=== PATIENT | female | born 1945 | race Caucasian/White ===

== ENCOUNTER → 2019-10-30 09:34 | Outpatient (CLI) | payer MEDICARE, SELFPAY ==
--- NOTE | ~2019-10-30 | CT_ITS ---
EXAMINATION: CT IAC/mastoids BI wo con DATE: 10/30/2019 09:54 INDICATION: Sudden hearing loss. Vertigo. TECHNIQUE: Computed tomography (CT) of the temporal bones was performed without intravenous contrast. Automated exposure control and iterative reconstruction technique were employed. The dose-length pro duct was 217.73 mGy-cm. COMPARISON: Head CT 06/13/2012 FINDINGS: There is anteroposterior elongation of the ocular globes. There are likely changes of ocula r lens replacement surgeries. RIGHT TEMPORAL BONE: The internal auditory canal, cochlea, vestibule, semicircular canals, vestibular aqueduct, carotid ca nal, jugular bulb, facial nerve course, Prussak space, scutum, ossicles, tympanic membrane, and exter nal auditory canal are normal. There is a trace right mastoid effusion. LEFT TEMPORAL BONE: The internal auditory canal, cochlea, vestibule, semicircular canals, vestibular aqueduct, carotid ca nal, jugular bulb, facial nerve course, ossicles, Prussak space, scutum, tympanic membrane, external auditory canal, and mastoid air cells are normal. IMPRESSION: 1. No etiology for the patient's symptoms. Reviewed, dictated and finalized at location A.
== END ==
PROVIDERS: PCP Internal Medicine Cardiovascular Disease; Visit Provider Otolaryngology
DX: H91.90 Unspecified hearing loss, unspecified ear (principal)
CPT/HCPCS: 70480

== ENCOUNTER 2020-08-13 17:27 | Emergency (ER) | payer MEDICARE, SELFPAY ==
[2020-08-13] VITALS (11 sets, daily range): BP systolic 132–151; BP diastolic 56–67; PULSE 80–88; RESP 12–20; TEMP 36.8; O2SAT 96–99
--- NOTE | 2020-08-13 17:45 | ECG_ITS ---
Measurements Intervals [place] Rate: 80 P: 93 [place]: 163 QRS: 37 QRSD: 89 T: 37 QT: 406 QTc: 469 Interpretive Statements ELECTRONIC ATRIAL PACEMAKER DELAYED PRECORDIAL R/S TRANSITION BASELINE ARTIFACT- I, II, III, AVR, AVL, AVF, V1, V3-V6 BORDERLINE ECG Electronically Signed On 08-13-2020 19:38:39 CDT by David Vivas D.O.
--- NOTE | 2020-08-13 17:50 | ED.DIZZY ---
HPI - Dizziness General Chief Complaint: Dizziness Stated Complaint: dizzy, palpations Time Seen by Provider: 08/13/20 17:48 History of Present Illness HPI Narrative: 74 yo female w/ h/o pacemaker presents to the ED for dizziness. SHe reports that she was just sitting at home when she suddenly felt lightheaded and began to feel her heart race and skip beats. She has had several episodes like this and no specific cause has been found. 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 She has no symptoms at this time. Related Data Allergies Allergy/AdvReac Type Severity Reaction Status Date / Time Penicillins Allergy Unknown Verified 04/22/15 16:30 Review of Systems Review of Systems: All systems reviewed & are unremarkable except as noted in HPI and below Constitutional: Constitutional: Denies fatigue, Denies fever(s) and Denies weakness Eyes: Eyes: Reports no additional eye complaints ENT: Reports as per HPI Cardiovascular: Cardiovascular: Denies chest pain and Reports rapid heart rate Respiratory: Respiratory: Denies dyspnea Gastrointestinal: Gastrointestinal: Denies abdominal pain and Denies nausea Genitourinary: Genitourinary: Reports no additional female genitourinary complaints Musculoskeletal: Musculoskeletal: Denies back pain Neurologic: Denies confusion, Denies syncope, Denies headache(s) and Denies weakness [facility] Past Medical History Medical History Pacemaker Social History Social History Gender identity (if verbalized by the patient): Female Exam Const: General: no acute distress and alert Orientation/consciousness: patient oriented x3 HENMT: Head: normal to inspection Ears: TM's normal bilaterally and EAC's normal Eyes: Pupils: Equal, round and reactive pupils present EOM: EOMs intact bilaterally Neck: Neck: normal visual inspection Resp: Effort & Inspection: normal respiratory effort Auscultation: clear to auscultation bilaterally, no rales, no rhonchi and no wheezes Cardio: Jugular venous distension: no JVD Rate: regular rate Rhythm: regular rhythm Skin: General skin exam: normal color Neuro: General: patient oriented x3, moves all extremities, no focal motor deficits and CN's II-XI intact bilaterally Cranial nerves: Yes Nystagmus not present Speech: normal speech Gait exam (Neuro): Normal gait present Extrem: General: no edema Psych: Appearance: well kempt Affect: normal affect Course Vital Signs Vital signs: Vital Signs Temperature 36.8 C 08/13/20 17:33 Pulse Rate 80 08/13/20 17:33 Respiratory Rate 20 08/13/20 17:33 Blood Pressure 151/59 H 08/13/20 17:33 Pulse Oximetry 99 08/13/20 17:33 Temperature 36.8 C 08/13/20 17:33 Pulse Rate 80 08/13/20 19:51 Respiratory Rate 19 08/13/20 19:51 Blood Pressure 132/67 08/13/20 19:51 Pulse Oximetry 97 08/13/20 19:51 MDM - Dizziness MDM Narrative Medical decision making narrative: No events on pacemaker interrogation report to explain her dizziness. UA concerning for infection. Could just represent contaminated specimen. Lab Data Result diagrams: 08/13/20 17:47 08/13/20 17:47 Labs: Lab Results 08/13/20 08/13/20 08/13/20 Range/Units 17:47 17:47 18:38 WBC 9.8 (4.5-10.0) K/mm3 RBC 4.48 (4.2-5.4) M/mm3 Hgb 13.1 (12.0-15.0) g/dL Hct 40.7 (37.0-47.0) % MCV 90.8 (80-100) fl MCH 29.2 (26-34) pg MCHC 32.2 (32-36) g/dl RDW 13.4 (11.5-14.5) % Plt Count 387 H (150-375) k/mm3 MPV 9.4 (7.4-10.4) fl Immature Gran % (Auto) 0.5 (0-0.5) % Neut % (Auto) 62.4 (45.5-73.1) % Lymph % (Auto) 26.5 (18.3-44.2) % [place] % (Auto) 7.8 (2.6-8.5) % Eos % (Auto) 1.7 (0-4.4) % Baso % (Auto) 1.1 (0.2-1.2) % Lymph # (Auto) 2.60 (0.9-3.2) K/mm3 [place] # (Auto) 0.8 H
[2020-08-13 17:53] LABS: Basophils Absolute Auto 0.1 K/mm3 (0.0-0.1); Basophils Percent Auto 1.1 % (0.2-1.2); Eosinophils Absolute Auto 0.2 K/mm3 (0-0.3); Eosinophils Percent Auto 1.7 % (0-4.4); Hematocrit 40.7 % (37.0-47.0); Hemoglobin 13.1 g/dL (12.0-15.0); Immature Granulocyte Absolute 0.05 K/mm3 (0.00-0.031); Immature Granulocyte Percent A 0.5 % (0-0.5); Lymphocytes Percent Auto 26.5 % (18.3-44.2); Mean Corpuscular HGB Conc 32.2 g/dl (32-36); Mean Corpuscular Hemoglobin 29.2 pg (26-34); Mean Corpuscular Volume 90.8 fl (80-100); Mean Platelet Volume 9.4 fl (7.4-10.4); Monocytes Absolute Auto 0.8 K/mm3 (0.1-0.6); Monocytes Percent Auto 7.8 % (2.6-8.5); Neutrophils Absolute Auto 6.1 K/mm3 (1.3-6.7); Neutrophils Percent Auto 62.4 % (45.5-73.1); Platelet Count Result 387 k/mm3 (150-375); Red Blood Count 4.48 M/mm3 (4.2-5.4); Red Cell Distribution Width 13.4 % (11.5-14.5); White Blood Count 9.8 K/mm3 (4.5-10.0)
[2020-08-13 18:03] LABS: Anion Gap 9 mmol/L (8-16); Blood Urea Nitrogen 15 mg/dL (7-17); Calcium 9.7 mg/dL (8.4-10.2); Carbon Dioxide 25 mmol/L (22-30); Chloride 106 mmol/L (98-107); Estimated CRCL calculation 57 ml/min; Estimated Glomerular Filt Rate > 60; Glucose 114 mg/dL (65-105); Potassium 3.9 mmol/L (3.4-5.0); Sodium 140 mmol/L (137-145)
[2020-08-13 18:55] LABS: Add Urine Microscopic? YES; Appearance Urine Cloudy (Clear); Bacteria Urine 1+ /hpf; Bilirubin Urine Negative (Negative); Color Urine Yellow (Yellow); Glucose Urine UA Negative (Negative); Ketones Urine Negative (Negative); Leukocyte Esterase Ur 3+ LEU/UL (Negative); Mucus Urine Moderate /lpf; Nitrate Urine Negative (Negative); Protein Urine 1+ mg/dL (Negative); Squamous Epithelial Cell Urine Many /hpf (Few); Urobilinogen Urine Negative mg/dL (<2.0); WBC Urine 51-75 /hpf
[2020-08-13 18:56] LABS: Blood Urine Negative (Negative)
--- NOTE | 2020-08-13 19:05 | PC.NURSE ---
Spoke with [employer], they will be faxing over a report.
[2020-08-13] MEDS: NITROFURANTOIN MONOHYD MACROCR 100 MG CAP PO (19:10)
--- NOTE | 2020-08-13 19:12 | PC.NURSE ---
Report received from MICHAELA Borjas. Assumed care of patient at this time.
== END 2020-08-13 19:53 | disposition home or self-care (01) ==
PROVIDERS: Emergency Provider Emergency Medicine; PCP Internal Medicine Cardiovascular Disease
DX: N39.0 Urinary tract infection, site not specified (principal); R42 Dizziness and giddiness; Z95.0 Presence of cardiac pacemaker; R94.31 Abnormal electrocardiogram [ECG] [EKG]
CPT/HCPCS: 36415; 80048; 81001; 85025; 87086; 93005; 99284; A9270

== ENCOUNTER 2021-03-28 11:05 | Emergency (ER) | payer MEDICARE, SELFPAY ==
--- NOTE | 2021-03-28 11:08 | ED.URI ---
HPI - URI/Sore Throat General Chief Complaint: Upper Respiratory Infection Stated Complaint: sore throat/swollen glands Time Seen by Provider: 03/28/21 11:08 Source: patient and RN notes reviewed History of Present Illness HPI Narrative: Patient is a 75-year-old female who presents the urgent care with complaints of left-sided swollen glands and sore throat for the last 4 days. Patient denies of any recent exposure to strep, Covid or influenza. States that she has had a Covid vaccine. Denies of any fevers, headaches, nausea or vomiting. Patient states she has been taking ixzp-vik-itrhbsy Coricidin HBP for her symptoms. No other acute complaints. No acute distress noted. Patient read the plan of care. Some parts of this dictation were generated by voice recognition software and may contain typographical and/or grammatical inaccuracies. Related Data Allergies Allergy/AdvReac Type Severity Reaction Status Date / Time Penicillins Allergy Unknown Rash Verified 03/28/21 11:33 Review of Systems Review of Systems: CONSTITUTIONAL: Denies fever, chills, or sweats. EYES: Denies visual changes, redness, or discharge. ENT: Reports of sore throat and swollen glands on the left CARDIOVASCULAR: Denies chest pain, palpitations, or edema. RESPIRATORY: Denies cough or dyspnea. GASTROINTESTINAL: Denies abdominal pain, nausea, vomiting, or diarrhea. GENITOURINARY: Denies dysuria or hematuria. SKIN: Denies rash or itching. MUSCULOSKELETAL: Denies back pain, joint pain, or myalgia. NEUROLOGIC: Denies headache, numbness, or weakness. All other systems reviewed are negative, except as documented in HPI. PMFSH Past Medical History Medical History Pacemaker Social History Social History Gender identity (if verbalized by the patient): Female Comments At the time of my signature, I reviewed and agree with the nursing past medical, surgical, social, and family history. There is no relevant family history pertinent to the patient complaint. Exam Narrative: GENERAL: This is a well-nourished, well-developed patient, in no apparent distress. HEAD: normocephalic, atraumatic. EYES: PERRL. Sclera clear/white. Vision is grossly intact. EARS: External ears normal, auditory canals clear and without drainage, TMs normal without perforation. Hearing grossly intact. NOSE: External nose normal with no obvious nasal discharge, nares without redness, no rhinorrhea. THROAT: Mucous membranes moist. Moderate erythema noted posterior oropharynx with left-sided mild tonsillar edema without exudate. Moderate postnasal drainage. NECK: Neck supple, mild tender left submandibular lymphadenopathy CARDIOVASCULAR: Regular rate and rhythm-paced RESPIRATORY: Clear to auscultation. Breath sounds equal bilaterally. No wheezes, rales, or rhonchi. SKIN: warm, intact with no suspicious lesions or rash, good texture and turgor. NEURO: awake, alert, and oriented to person, place and time. There were no obvious focal neurologic abnormalities. EXTREMITIES: No clubbing, cyanosis, or edema. Course Vital Signs Vital signs: Vital Signs Temperature 99.7 F H 03/28/21 11:20 Pulse Rate 83 03/28/21 11:20 Respiratory Rate 18 03/28/21 11:20 Blood Pressure 131/56 L 03/28/21 11:20 Pulse Oximetry 97 03/28/21 11:20 Temperature 99.7 F H 03/28/21 11:20 Pulse Rate 83 03/28/21 11:20 Respiratory Rate 18 03/28/21 11:20 Blood Pressure 131/56 L 03/28/21 11:20 Pulse Oximetry 97 03/28/21 11:20 Reviewed MDM - URI/Sore Throat MDM Narrative Medical decision making narrative: Reviewed lab results with the patient. She is aware that strep swab was negative. Educated patient on culture we will call within 72 hours if culture is positive and antibiotics necessary. Advised the patient to use an [id number] antihistamine such as Claritin, avoid pseudoephedrine
[2021-03-28 11:20] VITALS: BP 131/56; PULSE 83; RESP 18; TEMP 37.6; O2SAT 97
== END 2021-03-28 11:54 | disposition home or self-care (01) ==
PROVIDERS: Emergency Provider Nurse Practitioner Family; PCP Internal Medicine
DX: J02.9 Acute pharyngitis, unspecified (principal)
CPT/HCPCS: 87081; 87880; 99213; G0463

== ENCOUNTER 2022-03-18 15:04 | Emergency (ER) | payer MEDICARE, SELFPAY ==
--- NOTE | ~2022-03-18 | CT_ITS ---
EXAMINATION: CT brain wo con DATE: 03/18/2022 15:54 INDICATION: Dizziness . TECHNIQUE: Computed tomography (CT) of the head was performed without intravenous contrast. The mA wa s adjusted according to patient size. Iterative reconstruction technique was employed. The dose-lengt h product was 605.33 mGy-cm. COMPARISON: 06/13/2012 FINDINGS: No acute intracranial hemorrhage or extra-axial fluid collection. No hydrocephalus, mass, or herniation. No acute ischemic infarct. Unremarkable dural venous sinus attenuation. No acute osseous abnormality. The aerated spaces are clear. Mild atrophy and severe chronic white matter change. Atherosclerotic intracranial calcification. Bila teral lens replacements. IMPRESSION: No acute intracranial process. Reviewed, dictated and finalized at location K. 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
[2022-03-18 15:05] VITALS: BP 129/66; PULSE 80; RESP 18; TEMP 36.5; O2SAT 96
--- NOTE | 2022-03-18 15:19 | ED.DIZZY ---
HPI - Dizziness General Chief Complaint: Dizziness Stated Complaint: n/v, dizzy, diaphoretic History of Present Illness HPI Narrative: 76-year-old female with history of recent open heart surgery approximately 6 months ago presenting to the emergency department for evaluation of intermittent episodes of vertigo. Patient states since having the surgery she has had approximately 6 episodes of vertigo. Patient states episode today started with a spinning sensation and dizziness. Patient states when she closes her eyes that this does seem to improve her symptoms. Patient called EMS due to concern for having a heart attack due to the associated nausea and vomiting today.. Patient was treated with Zofran and did feel improved. Patient has discussed this issue previously with her physicians and they did adjust her Cardizem. Patient has also thought that she has been having intermittent A. fib but when her pacemaker is interrogated and shows no evidence of an arrhythmia. Related Data Home Medications Medication Instructions Recorded Confirmed atorvastatin 40 mg tablet 40 mg PO DAILY 03/28/21 03/28/21 diltiazem HCl 240 mg 240 mg PO BID 03/28/21 03/28/21 capsule,extended release 24 hr dofetilide 500 mcg capsule 500 mcg PO BID 03/28/21 03/28/21 levothyroxine 50 mcg tablet 25 mcg PO DAILY 03/28/21 03/28/21 pantoprazole 40 mg tablet,delayed 40 mg PO DAILY 03/28/21 03/28/21 release rivaroxaban 20 mg tablet (Xarelto) 20 mg PO DAILY 03/28/21 03/28/21 vitamins A,C,D-bzwh-powkeq 14,320 1 cap PO DAILY 03/28/21 03/28/21 unit-226 mg-200 unit capsule (PreserVision AREDS) magnesium oxide 400 mg (241.3 mg mg 03/18/22 magnesium) tablet potassium chloride 20 mEq meq PO 03/18/22 tablet,extended release(part/cryst) (Klor-Con M) Allergies Allergy/AdvReac Type Severity Reaction Status Date / Time Penicillins Allergy Unknown Rash Verified 03/18/22 15:35 Review of Systems Review of Systems: CONSTITUTIONAL: Denies fever, chills, or sweats. EYES: Denies visual changes, redness, or discharge. ENT: Denies rhinorrhea, congestion, sore throat, or otalgia. CARDIOVASCULAR: Denies chest pain, palpitations, or edema. RESPIRATORY: Denies cough or dyspnea. GASTROINTESTINAL: Denies abdominal pain, nausea, vomiting, or diarrhea. GENITOURINARY: Denies dysuria or hematuria. SKIN: Denies rash or itching. MUSCULOSKELETAL: Denies back pain, joint pain, or myalgia. NEUROLOGIC: Dizziness and vertigo with associated nausea PMFSH Past Medical History Medical History Pacemaker Social History Social History Gender identity (if verbalized by the patient): Female Exam Narrative: APPEARANCE: Well appearing, no pain, no distress, well-nourished. HEAD: normocephalic, atraumatic. EYES: PERRLA/EOMI, conjunctivae clear. NOSE: Normal no drainage EARS:TMS clear with good light reflex. THROAT: Pharynx clear, no exudate. NECK: Supple. No adenopathy, no masses. RESPIRATORY: Airway patent, respirations nonlabored. Clear to auscultation bilaterally, no rales, rhonchi, wheezing. CARDIOVASCULAR: Regular rate and rhythm without murmurs rubs or gallops. ABDOMINAL: Soft, nontender, nondistended, normal bowel sounds MUSCULOSKELETAL: Moves all extremities. Strength/ROM intact, No edema, No calf tenderness. NEURO: Alert. Cranial nerves II through XII intact. Grossly intact. Motor strength reflexes. No ataxia or discoordination. Vertigo did resolve with closing the patient's eyes. SKIN: Warm, dry. Normal Color PSYCHIATRIC: Normal affect/mood. Course Course Emergency Course: Patient had a negative head CT. Patient was afebrile with no leukocytosis. Patient did have nitrates and leukoesterase on her UA. Urine culture was ordered. And patient was started on Macrobid. Patient did feel improved with the meclizine. Patient was encouraged of close fo
--- NOTE | 2022-03-18 15:23 | ECG_ITS ---
Measurements Intervals [place] Rate: 81 P: [place]: 0 QRS: 111 QRSD: 159 T: -18 QT: 472 QTc: 549 Interpretive Statements ELECTRONIC VENTRICULAR PACEMAKER NO FURTHER INTERPRETATION POSSIBLE COMPARED TO ECG 08/13/2020 17:43:41 VENTRICULAR PACED RHYTHM IS NOW APPRECIATED Electronically Signed On 03-19-2022 13:32:35 [employer] by Serge Winter M.D.
[2022-03-18 15:32] VITALS: PULSE 81
[2022-03-18 15:42] LABS: Basophils Absolute Auto 0.1 K/mm3 (0.0-0.1); Basophils Percent Auto 0.8 % (0.2-1.2); Eosinophils Absolute Auto 0.2 K/mm3 (0-0.3); Eosinophils Percent Auto 2.5 % (0-4.4); Hematocrit 36.1 % (37.0-47.0); Hemoglobin 11.2 g/dL (12.0-15.0); Immature Granulocyte Absolute 0.02 K/mm3 (0.00-0.031); Immature Granulocyte Percent A 0.2 % (0-0.5); Lymphocytes Absolute Auto 1.48 K/mm3 (0.9-3.2); Lymphocytes Percent Auto 15.3 % (18.3-44.2); Mean Corpuscular Hemoglobin 24.3 pg (26-34); Mean Corpuscular Volume 78.3 fl (80-100); Mean Platelet Volume 9.4 fl (7.4-10.4); Monocytes Absolute Auto 0.8 K/mm3 (0.1-0.6); Monocytes Percent Auto 7.7 % (2.6-8.5); Neutrophils Absolute Auto 7.1 K/mm3 (1.3-6.7); Neutrophils Percent Auto 73.5 % (45.5-73.1); Platelet Count Result 303 k/mm3 (150-375); Red Blood Count 4.61 M/mm3 (4.2-5.4); Red Cell Distribution Width 20.2 % (11.5-14.5); White Blood Count 9.7 K/mm3 (4.5-10.0)
[2022-03-18 15:52] LABS: Alanine Aminotransferase 14 U/L (6-35); Albumin Level 4.4 g/dL (3.5-5.1); Alkaline Phosphatase 112 U/L (38-126); Anion Gap 7 mmol/L (8-16); Aspartate Amino Transferase 22 U/L (14-36); Bilirubin,Total 0.4 mg/dL (0.2-1.3); Blood Urea Nitrogen 17 mg/dL (7-17); Calcium 9.3 mg/dL (8.4-10.2); Carbon Dioxide 25 mmol/L (22-30); Chloride 105 mmol/L (98-107); Estimated CRCL calculation 45 ml/min; Estimated Glomerular Filt Rate > 60; Glucose 119 mg/dL (65-110); Magnesium 1.9 mg/dL (1.6-2.3); Potassium 3.5 mmol/L (3.4-5.0); Sodium 137 mmol/L (137-145)
[2022-03-18] MEDS: MECLIZINE HCL 25 MG TABLET PO (15:59)
[2022-03-18] MEDS: METOCLOPRAMIDE HCL INJ 10 MG/2 ML VIAL IV PUSH (15:59)
[2022-03-18 16:38] LABS: Appearance Urine Cloudy (Clear); Bilirubin Urine Negative (Negative); Blood Urine Negative (Negative); Color Urine Yellow (Yellow); Glucose Urine UA Negative (Negative); Ketones Urine Negative (Negative); Leukocyte Esterase Ur 1+ LEU/UL (Negative); Nitrate Urine Positive (Negative); Protein Urine 1+ mg/dL (Negative); Urobilinogen Urine 0.2 mg/dL (<2.0)
[2022-03-18 16:43] LABS: Bacteria Urine Trace /hpf; Mucus Urine Few /lpf; RBC Urine 0-2 /hpf (0-2); Squamous Epithelial Cell Urine Rare /hpf (Few)
[2022-03-18 16:44] VITALS: BP 124/59; PULSE 80; RESP 19; O2SAT 96
[2022-03-18 16:44] LABS: Add Urine Microscopic? YES
[2022-03-18] MEDS: NITROFURANTOIN MONOHYD MACROCR 100 MG CAP PO (17:43)
[2022-03-18 17:56] VITALS: BP 137/65; PULSE 82; RESP 18; O2SAT 97
== END 2022-03-18 17:58 | disposition home or self-care (01) ==
PROVIDERS: Emergency Provider Emergency Medicine; PCP Internal Medicine
DX: H81.10 Benign paroxysmal vertigo, unspecified ear (principal); N39.0 Urinary tract infection, site not specified; I48.91 Unspecified atrial fibrillation; Z95.0 Presence of cardiac pacemaker; Z98.890 Other specified postprocedural states
CPT/HCPCS: 36415; 70450; 80053; 81001; 83735; 85025; 87077; 87086; 87186; 93005; 96374; 99284; A9270; J2765

== ENCOUNTER 2022-06-02 11:00 | Outpatient (RCR) | payer MEDICARE, SELFPAY ==
--- NOTE | 2022-04-28 11:33 | PTOPEVAL1 ---
Assessment and note entered by Nadiya Knowles, PT Evaluation Information Assessment Status Evaluation Diagnosis vestibular rehab Onset July 2021 Subjective Information have had onset of dizziness after open heart surgery in July 2021- change in meds; to ER in Mar 2022 due to dizziness, had head CT which was negative, received meclazine and meds for UTI; saw ENT who sent her here; take Zrtec during allergy season--little issues with allergies; wear glasses for driving, have had cataract surgery-- one eye for close and one eye for distance; had hearing checked last week; have had more dental work lately--deep cleaning; Reported Pain Level Pain Score Self Report 0-4/10 Additional Pain Score Comments head ache in the posterior head, lightheaded feeling; have headache more when not moving around and active, when sitting down and watching TV; instruct on use of heat PRN over neck, upper traps Assessment PT Clinical Summary Jenna has the diagnosis of vestibular rehab. She reports onset after open heart surgery in July. She went to ER March with UTI and given meclazine. She has multiple factors that put her at risk for vestibular issues: recent cardiac surgery, B hearing aides, visual issues, increase in headaches, neck pain, multiple meds, higher BP since her cardiac surgery, pacemaker/A-fib, recent dental work. Dizziness Handicap Index score of 40/100. With the testing: BPPV testing was negative; she had increase in S/S with eye tracking R/L; poor posture of neck and shoulders; decreased cervical rotation ROM B, R tighter than L; Education was provided to pt on general vestibular system; monitor BP, monitor posture, use heat for tightness of cervical muscles; positioning with head supported; Skilled PT services are indicated for vestibular rehab to decrease her dizziness and light headed symptoms; modalities PRN for cervical pain and headaches, with education for posture, HEP and self care.
--- NOTE | 2022-05-12 13:20 | PCPTNOTE ---
Patient called & cancelled scheduled appointment this date due to sister having surgery.
--- NOTE | 2022-05-15 16:50 | PCPTNOTE ---
Patient called & cancelled scheduled appointment this date due to weather.
--- NOTE | 2022-06-02 12:04 | PTOPDC ---
Assessment and note entered by Nadiya Knowles, PT Evaluation Information Assessment Status Discharge Diagnosis vestibular rehab Onset July 2021 Subjective Information Jenna reports: in the past week, has only had a blurp or two of funny feelings when bend forward, focus eyes and it goes away quickly; have been doing her exercises at home and trying to fix her posture every time she passes a mirror; have been walking about 1 & 1/2 miles on the track, 3x/week No neck pain today, headaches come and go, last less than 5 minutes, 3/10 rating-- varies 0-2x/day ease headache by relaxing and sitting down; use heat for relaxing neck muscles; Reported Pain Level Pain Score Self Report Additional Pain Score Comments pain range of 0-4/10 in neck Assessment PT Clinical Summary Jenna has received 5 PT sessions. Today with Dizziness Handicap Index, she rated herself at 28/ 100. Compared to the initial evaluation: pain rating of headaches and neck pain is the same, with duration of headaches less, only ~ 5 min now; cervical rotation to the R has increased by 5', but still increases neck pain; Dizziness handicap score decreased by 12 points and she reports only short duration of head feeling funny with quick head motions and bending forward; walking with head turns and eye tracking does not cause her any vestibular issues. Her posture has improved and she has a home exercise program. She has increased her activity level and walking 1 & 1/2 miles, 3x/wk. The goals were partially achieved. Discharge PT services. Plan of Care PT Services Indicated No
== END 2022-06-02 12:43 | disposition home or self-care (01) ==
LOC: ANHPT 11:00
PROVIDERS: PCP Internal Medicine; Visit Provider Otolaryngology
DX: H90.3 Sensorineural hearing loss, bilateral (principal)
CPT/HCPCS: 97110; 97140; 97162; 97530

== ENCOUNTER 2024-03-19 08:48 | Outpatient (CLI) | payer MEDICARE, SELFPAY ==
--- NOTE | ~2024-03-19 | US_ITS ---
EXAMINATION: US abdomen complete DATE: 03/19/2024 10:59 INDICATION: Weight loss. TECHNIQUE: Multiple grayscale and Doppler ultrasound images of the abdomen were obtained. COMPARISON: None FINDINGS: Calcifications in the spleen are consistent with old granulomatous disease. The spleen is n ormal in size. The kidneys are normal in size. Abdominal aorta is normal in caliber. Inferior vena ca va is normal. The visualized portions of the head, body, and tail of the pancreas are normal. The jose maria er is normal without focal lesion. There is normal flow in main portal vein. The gallbladder is estuardo l in size and contains sludge. No gallstones or gallbladder wall thickening. There is no sonographic Smith's sign. The common duct is normal and measures 5 mm. The bladder is normal. IMPRESSION: 1. No etiology for the patient's symptoms. Reviewed, dictated and finalized at location A. T INSPECTOR
== END 2024-03-19 08:49 | disposition home or self-care (01) ==
PROVIDERS: PCP Internal Medicine; Visit Provider Internal Medicine
DX: R10.11 Right upper quadrant pain (principal); R63.4 Abnormal weight loss; R11.0 Nausea
CPT/HCPCS: 76700

== ENCOUNTER 2025-02-25 10:03 | Outpatient (CLI) | payer MEDICARE, SELFPAY ==
--- NOTE | ~2025-02-25 | MM_ITS ---
EXAMINATION: MM screening bijan BI w christin HISTORY: Screening TECHNIQUE: Craniocaudal and mediolateral oblique 3-D tomosynthesis images were obtained and synthetic 2-D images were generated. CAD analysis was submitted and interpreted. COMPARISON: 10/29/2017 BREAST PARENCHYMAL COMPOSITION: Not dense: There are scattered areas of fibroglandular density. FINDINGS: There is no evidence of suspicious mass, calcification, or architectural distortion to suggest malignancy in either breast. There has been no suspicious interval change. IMPRESSION: 1. No mammographic evidence of malignancy. 2. Recommend routine screening mammography in one year. BI-RADS Category 1: Negative Reviewed, dictated and finalized at location B. DER/BRAZE APPLICATOR
--- OUTSIDE RECORDS SUMMARY | 2025-02-25 11:10 | XMS_ITS | Clinical Summary ---
Author Organization [facility] Address [address] [place] [address] Care Team Providers Care Rack Pusher Name Role Phone Unavailable Primary Care Provider Unavailabl e Source Comments [facility] [employer],non-owned Affiliates and Associated Physician Practices is amultiple site organization consisting of ambulatory clinics and hospital sitesin [place], [place], [place] and [place]. This disclosure is being madepursuant to the Care Everywhere program and may not contain all information available regarding this patient. 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 Gender Identity Not on file Sexual Orientation Not on file Plan of Treatment Health Maintenance Due Date Last Done Comments BONE DENSITY TESTING 1945 DTAP/TDAP/TD VACCINES (1 - Tdap) 10/18/1962 PNEUMOCOCCAL VACCINE 50+ (1 of 1 - PCV) 10/18/1993 ZOSTER VACCINE (1 of 2) 10/18/1993 Respiratory Syncytial Virus (RSV) Vaccine Pt: or over 60 yrs (1 - 1-dose 75+ series) 10/18/2018 DEPRESSION SCREENING 04/16/2024 COVID-19 VACCINE ( - 2023-2 5 season) 2024 INFLUENZA VACCINE (#1) 2024 HEPATITIS B VACCINE Aged Out No longe r eligible based on patient's age to complete this topic HIB VACCINE Aged Out No longer eligi ble based on patient's age to complete this topic HPV VACCINE Aged Out No longer eligi ble based on patient's age to complete this topic MENINGOCOCCAL (Group B) VACC INE SHARED DECISION-MAKING Aged Out No longer eligibl e based on patient's age to complete this topic MENINGOCOCCAL GROUPS A/C/Y/W VACCINE Aged Out No longer eligible b ased on patient's age to complete this topic Insurance [facility] MANAGED MEDICARE ADV
--- OUTSIDE RECORDS SUMMARY | 2025-02-25 11:10 | XMS_ITS | Encounter Summary ---
Author Organization [facility] Address [address] [place] [address] Care Team Providers Care Plant Etiologist Name Role Phone Unavailable Primary Care Provider Unavailabl e Encounter Details Date Type Department Care Team (Late st Contact Info) Description 05/22/2018 Lab Requisition [facility] Care DermPath Lab [address] [facility] [place] [id number] Wilfrid Egan MD [address] [place] [address] Social History Tobacco Use Types Packs/Day Years Used Date Smoking Tobacco: Never Assessed Comments Unknown Sex and Gender Information Value Date Recorded Sex Assigned at Not on file Legal Sex Female 7:18 PM UPHOLSTERY PARTS SORTER Gender Identity Not on file Sexual Orientation Not on file documented as of this encounter Plan of Treatment Not on file documented as of this encounter Procedures Procedure Name Priority Date/Time Associated Diagnosis Comments DERMATOPATHOLOGY Routine 05/21/2018 12:0 0 AM UPHOLSTERY PARTS SORTER documented in this encounter Results * DERMATOPATHOLOGY (05/21/2018 12:00 AM UPHOLSTERY PARTS SORTER) Case Report Dermatopathology Report Case: [id number] Authorizing Provider: Wilfrid Egan MD Collected: 05/21/2018 12:00 AM Pathologist: Marlen Fermin MD Received: 05/22/2018 11:28 AM Specimen: Skin, left of midline mid nose 9 3:[address] [facility] DERMATOPATHOLOGY LABORATORY Final Diagnosis Specimen A. 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 DERMATOPATHOLOGY LABORATORY at [address] [facility] Clinical History R/O BCC. Check margins. 3:[address] [facility] DERMATOPATHOLOGY LABORATORY Gross Description Specimen A: Received is one formalin filled container labeled with the patients name and designated left of midline mid nose. The specimen consists of a shave removal measuring [id number]. The margin is inked green. Jar 0. 3:[address] [facility] DERMATOPATHOLOGY LABORATORY Microscopic Description Specimen A. SKIN, left of midline mid nose: Sections show a lobular tumor composed of aggregates of epithelial cells extending from the epidermis into the dermis. The aggregates are composed of squamoid cells showing variable glycogen vacuolation (pale-staining cytoplasm). The tumor is focally positive with CD34. Ki-67 shows a low proliferative index. This lesion is present at the margin of the specimen. 3:[address] [facility] DERMATOPATHOLOGY LABORATORY Disclaimer An external and internal positive and negative controls are appropriate for the histochemical, immunohistochemical and immunofluorescence stain(s) in this case (if any), except where stated explicitly. The performance characteristics of the stain(s) cited in this report were developed and its performance characteristic determined by the Dermatopathology Laboratory at [facility], directed by Dr. Joseph Regalado. These tests need not be, and therefore are not, approved by the [place] Food and Drug Administration. The tests are used for clinical purposes. Billing Codes Specimen Charges Stain Charges 92911 1 84980 20387 1 1 3:[address] [facility] DERMATOPATHOLOGY LABORATORY Embedded Images 3:[address] [facility] DERMATOPATHOLOGY LABORATORY Pathology/Cytolog y TISSUE SPECIMEN FROM SKIN / Unknown 05/21/2018 05/22/2018 11:[address] [facility] us Wilfrid Egan MD LAB - PATHOLOGY/CYTOLOGY ORD ERABLES Final Result DERMATOPATHOLOGY LABORATORY [facility] - Department of Dermatology [facility] [facility], [address] [place] [address], [facility] [phone] documented in this encounter Visit Diagnoses Not on filedocumented in this encounter
--- OUTSIDE RECORDS SUMMARY | 2025-02-25 11:10 | XMS_ITS | Encounter Summary ---
Author Organization [facility] Address [address] [place] [address] Care Team Providers Care Wheel Fitter Name Role Phone Unavailable Primary Care Provider Unavailabl e Encounter Details Date Type Department Care Team (Late st Contact Info) Description 01/08/2019 Lab Requisition [facility] DermPath Lab [address] [place] [phone] Wilfrid Egan MD [address] [place] [address] Social History Tobacco Use Types Packs/Day Years Used Date Smoking Tobacco: Never Assessed Comments Unknown Sex and Gender Information Value Date Recorded Sex Assigned at Not on file Legal Sex Female 7:18 PM 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 Gender Identity Not on file Sexual Orientation Not on file documented as of this encounter Plan of Treatment Not on file documented as of this encounter Procedures Procedure Name Priority Date/Time Associated Diagnosis Comments DERMATOPATHOLOGY Routine 01/07/2019 12:0 0 AM CDT documented in this encounter Results * DERMATOPATHOLOGY (01/07/2019 12:00 AM CDT) Case Report Dermatopathology Report Case: [id number] Authorizing Provider: Wilfrid Egan MD Collected: 01/07/2019 12:00 AM Ordering Location: [facility] DermPath Lab Received: 01/08/2019 12:54 PM Pathologist: Shelby Regalado MD Specimen: Skin, left lower pretibia 9 4:02 PM CDT DERMATOPATHOLOGY LABORATORY Final Diagnosis Specimen A. SKIN, left lower pretibia: ACTINIC KERATOSIS, LICHENOID (L57.0) PRESENT AT MARGIN 9 4:02 PM CDT DERMATOPATHOLOGY LABORATORY at 1602 CDT Clinical History R/O BCC, SCC, Santos's. Check margins. 4:02 PM CDT DERMATOPATHOLOGY LABORATORY Gross Description Specimen A: Received is one formalin filled container labeled with the patients name and designated left lower pretibia. The specimen consists of a shave removal measuring [id number]. The margin is inked green. Jar 0. 4:02 PM CDT DERMATOPATHOLOGY LABORATORY Microscopic Description Specimen A. SKIN, left lower pretibia: There is focal parakeratosis. The lower half of the epidermis shows disorderly maturation of keratinocytes with nuclear pleomorphism. The dermis shows a band-like, chronic inflammatory infiltrate with occasional apoptotic keratinocytes and some basal vacuolar alteration. This lesion is present at the margin of the specimen. 4:02 PM CDT DERMATOPATHOLOGY LABORATORY Disclaimer An external and internal positive and negative controls are appropriate for the histochemical, immunohistochemical and immunofluorescence stain(s) in this case (if any), except where stated explicitly. The performance characteristics of the stain(s) cited in this report were developed and its performance characteristic determined by the Dermatopathology Laboratory at [facility], directed by Dr. Joseph Regalado. These tests need not be, and therefore are not, approved by the [place] Food and Drug Administration. The tests are used for clinical purposes. Billing Codes Specimen Charges Stain Charges 13135 1 4:02 PM CDT DERMATOPATHOLOGY LABORATORY Embedded Images 4:02 PM CDT DERMATOPATHOLOGY LABORATORY Pathology/Cytolog y TISSUE SPECIMEN FROM SKIN / Unknown 01/07/2019 01/08/2019 12:54 PM CDT us Wilfrid Egan MD LAB - PATHOLOGY/CYTOLOGY ORD ERABLES Final Result DERMATOPATHOLOGY LABORATORY [facility] - Department of Dermatology [address] [facility] [address], [address] [place] [address], [facility] [phone] documented in this encounter Visit Diagnoses Not on filedocumented in this encounter
--- OUTSIDE RECORDS SUMMARY | 2025-02-25 11:10 | XMS_ITS | Clinical Summary ---
Author Organization [facility] [address] [place] [phone] Care Team Providers Care Fender Mechanic Name Role Phone Huber Kincaid MD Primary Care Provider Emily Monzon MD Unavailable Bailey Ramey MD Unavailable Mina VAUGHN, OD, Cj Levi Unavailable [phone] Allergies Active Allergy Reactions Criticality Noted Date Comments Penicillins Hives,Swelling Medium Penicillin allergy history form complete. Severe risk Prochlorperazine Unknown 02/22/2022 Medications levothyroxine (SYNTHROID) 50 mcg tablet Take 1 tablet (50 mcg total) by mouth lead teller before breakfast Taking half tab daily Active rivaroxaban (XARELTO) 20 mg tablet 1 tablet (20 mg total) Active atorvastatin (LIPITOR) 40 mg tablet Take 1 tablet (40 mg total) by mouth daily Active vit A/vit C/vit E/zinc/copper (ICAPS AREDS ORAL) Take 1 tablet by mouth daily Active cetirizine (ZyrTEC) 10 mg tablet Take 10 mg by mouth daily Active pantoprazole DR (PROTONIX) 40 mg EC tablet Take 1 tablet (40 mg total) by mouth daily Active dofetilide (TIKOSYN) 250 mcg capsuleIndicati ons:cardiac arrhythmia Take 1 capsule (250 mcg total) by mouth 2 (two) times a day for 721 doses 60 capsule 2 Active magnesium oxide (MAG-OX) 400 mg (241.3 mg elemental magnesium) tablet Take 1 tablet (400 mg total) by mouth 2 (two) times a day 2 Active dilTIAZem XR (dilTIAZem CD) 240 mg 24 hr capsule Take 240 mg by mouth daily Active losartan-hydroc hlorothiazide (HYZAAR) 100-25 mg per tablet Take 1 tablet by mouth daily Active diltiaZEM CD (CARDIZEM CD) 360 mg 24 hr capsule Take 1 capsule (360 mg total) by mouth daily Active Active Problems Problem Noted Date Diagnosed Date Bilateral impacted cerumen 07/01/2024 Sensorineural hearing loss (SNHL) of both ears 0 07/01/2024 Mitral valve insufficiency 08/16/2021 Overview (08/16/2021): Added automatically from request for surgery [id number] Encounters Date Type Department Care Team Description 02/10/2025 12:45 PM CDT Office Visit [facility] Medicine Surgery [address] [address] Ailyn Albrecht NP Mitral valve insufficiency, unspecified etiology (Primary Dx) from Last 3 Months Surgical History Surgery Date Site/Laterality Comments EYE SURGERY Bilateral cataract INSERT / REPLACE / REMOVE PACEMAKER Left CARDIAC ELECTROPHYSIOLOGY STUDY AND ABLATION HYSTERECTOMY CARDIAC CATHETERIZATION CATARACT EXTRACTION CARDIAC VALVE REPLACEMENT Medical History Medical History Date Comments Motion sickness Hypertension Hyperlipidemia Atrial fibrillation (HCC) GERD (gastroesophageal reflux disease) Hypothyroidism Arthritis Mitral valve disorder Heart disease Allergies Ear problems Dizziness HL (hearing loss) Sleep difficulties Family History Medical History Relation Name Comments Heart disease Father Dementia Mother Glaucoma Mother Heart murmur Mother Rheumatic fever Mother Diabetes Sister Cancer Neg Hx Macular degeneration Neg Hx Strabismus Neg Hx Thyroid disease Neg Hx Relation Name Status Comments Father Mother Sister Social History Tobacco Use Types Packs/Day Years Used Date Smoking Tobacco: Never Passive Smoke Exposure: Never Smokeless Tobacco: Never Tobacco Cessation:Counseling Given: No AUDIT-C Answer Date Recorded Q1: How often do you have a drink containing alc ohol? Monthly or less 09/08/2021 Q2: How many drinks containi ng alcohol do you have on a typical day when you are drinking? 1 or 2 09/08/2021 Q3: How often do you have si x or more drinks on one occasion? Less than monthly 09/08/2021 Comments No Sex and Gender Information Value Date Recorded Sex Assigned at Not on file Legal Sex Female 2:49 AM BELLHOP CAPTAIN Gender Identity Not on file Sexual Orientation Not on file Last Filed Vital Signs Vital Sign Reading Time Taken Comments Blood Pressure 113/77 02/10/2025 1:01 PM CDT Pulse 82 02/10/2025 1:01 PM CDT Temperature 36.7 C (98 F) 07/01/2024 11:02 AM CDT Respiratory Rate 16 02/10/2025 1:01 PM CDT Oxygen Saturation 97% 02/10/2025 1:01 PM CDT Inhaled Oxygen Concentration - - Weight 64.4 kg (142 lb) 02/10/2025 1:01 PM CDT Height 160 cm (5' 3) 02/10/2025 1:01 PM CDT Body Mass Index 25.15 02/10/2025 1:01 PM CDT Plan of Treatment Health Maintenance Due Date Last Done Comments Depression Screening 1945 Osteoporosis Screening-Bone Density Scan 1945 Hepatitis B Screening 10/18/1961 Well Visit 65+ 10/18/2008 Pneumococcal vaccine 65+ (2 of 2 - PPSV23, PCV20, or PCV21) 04/06/2016 02/10/2016 Fall Risk Assessment 09/16/2022 09/16/2021 Covid-19 Vaccine (4 - 2024-2 6 season) 2024 02/16/2021, 07/05/2020, 06/03/2020 Influenza Vaccine (#1) 2024 , 01/20/2023, 01/11/2021, Additional history exists DTaP/Tdap/Td Vaccine (2 - Td or Tdap) 05/06/2030 05/06/2020 Zoster Vaccine Completed 01/16/2018, 11/14, 07/08/2017 Medical Devices Implanted Type Area Image Archivist Device Identifier Shelf Expiration Date Model / Serial / Lot [employer] Epic Flexfit 29mm 27mm 19mm Bioprosthesis Stent Alba Low [id number] - [id number] - [id number] Implanted:Qty: 1 on 09/08/2021 by Mert Palm MD at [facility] N/A: Heart [employer] 05/16/2024 [id number] / [id number] / Insurance [id number] [place] [address] MEDICARE [facility] MEDICARE [employer] [facility] MEDICARE Address: [address] [address] [place] [address] [facility] MEDICARE ADVANTAGE [facility] MEDIC[facility] Address: [facility] [address] [place] [address] Advance Directives For more information, please contact: [phone] * Full Code (Latest Code Status on File) Date Activated Date Inactivated Comments 09/08/2021 1:32 PM 09/16/2021 11:04 PM Healthcare Agents on File Name Relationship Healthcare Agent Relationspa p Communication Miguel Corral Grandchild Health Care Agent Wendie Grider Daughter First Alternate Health Care Agent Care Teams Fender Mechanic Relationship Specialty [place] [address] [address] [facility] [address] [place] [address] PCP - General Internal Medicine 07/28/21 Emily Monzon MD [address] [place] [address] Consulting Physician Cardiology 09/16/21 [place] [address] [facility] [facility] [address] [place] [address] Consulting Physician Cardiology 09/16/21 Cj Enriquez III, OD [address] [place] [address] Referring Physician Optometry 02/22/22
--- OUTSIDE RECORDS SUMMARY | 2025-02-25 11:10 | XMS_ITS | Clinical Summary ---
Author Organization [facility] Address [address] [place] [address] Care Team Providers Care Strip Machine Operator Name Role Phone Huber Kincaid MD Primary Care Provider [phone] Allergies Active Allergy Reactions Criticality Noted Date Comments Penicillins Swelling 04/28/2021 Medications atorvastatin (LIPITOR) 40 MG tablet Take 1 tablet (40 mg total) by mouth nightly at bedtime. Active levothyroxine (SYNTHROID) 50 MCG tablet Take 1 tablet (50 mcg total) by mouth every morning. 1/2 tablet Active dofetilide (TIKOSYN) 250 MCG capsule Take 1 capsule (250 mcg total) by mouth 2 (two) times daily. Active dilTIAZem CD 360 MG CAPSULE SR 24 HR 24 hr capsule Take 1 capsule by mouth daily. Active pantoprazole EC (PROTONIX) 40 MG tablet Take 1 tablet (40 mg total) by mouth daily. Active magnesium oxide (MAG-OX) 400 (240 Mg) MG tablet Take 1 tablet (400 mg total) by mouth daily. Active rivaroxaban (XARELTO) 20 MG Tab tablet Take by mouth daily with supper. Take with food Active furosemide (LASIX) 20 MG tablet Take 1 tablet (20 mg total) by mouth daily. Active meclizine (ANTIVERT) 25 MG tablet Take 1 tablet (25 mg total) by mouth 3 (three) times daily as needed. Active losartan (COZAAR) 50 MG tablet Take 1 tablet (50 mg total) by mouth 2 (two) times daily. 30 tablet 3 Active ondansetron (ZOFRAN-ODT) 4 MG disintegrating tabletIndications:V ertigo,Nausea & vomiting Take 1 tablet (4 mg total) by mouth every 6 (six) hours as needed for Nausea. 20 tablet Active Active Problems Problem Noted Date Diagnosed Date Vertigo 05/21/2024 Social History Tobacco Use Types Packs/Day Years Used Date Smoking Tobacco: Never Smokeless Tobacco: Never Tobacco Cessation:Counseling Given: Not Answered Alcohol Use Standard Drinks/Week Comments Yes 0 (1 standard drink = 0.6 oz pur e alcohol) Comments No Sex and Gender Information Value Date Recorded Sex Assigned at Female 05/13/2024 1:56 PM BYPRODUCT ENGINEER Legal Sex Female 6:42 PM BYPRODUCT ENGINEER Gender Identity Not on file Sexual Orientation Not on file Last Filed Vital Signs Vital Sign Reading Time Taken Comments Blood Pressure 129/57 05/28/2024 9:00 PM BYPRODUCT ENGINEER Pulse 60 05/28/2024 9:00 PM BYPRODUCT ENGINEER Temperature 36.7 C (98.1 F) 05/28/2024 9:00 PM BYPRODUCT ENGINEER Respiratory Rate 17 05/28/2024 9:00 PM BYPRODUCT ENGINEER Oxygen Saturation 97% 05/28/2024 9:00 PM BYPRODUCT ENGINEER Inhaled Oxygen Concentration - - Weight 69.3 kg (152 lb 12.5 oz) 05/28/2024 6:52 PM BYPRODUCT ENGINEER Height 162.6 cm (5' 4) 05/28/2024 6:52 PM BYPRODUCT ENGINEER Body Mass Index 26.22 05/28/2024 6:52 PM BYPRODUCT ENGINEER Plan of Treatment Health Maintenance Due Date Last Done Comments Annual Medicare Wellness Visit 10/18/2008 Dexa Scan (General) 10/18/2008 Pneumococcal Vaccine: 50+ Years (2 of 2 - PCV20 or PCV21) 02/09/2017 02/10/2016 RSV Immunization or 60+ Years (1 - 1-dose 75+ series) 10/18/2018 COVID-19 Vaccine ( - season) 2024 02/16/2021, 07/05/2020, 06/03/2020 Influenza Adult (#1) 2025 01/15/2020, 12/26/2019, 01/14/2019, Additional history exists DTaP, Tdap and Td Vaccines (2 - Td or Tdap) 05/06/2030 05/06/2020 Zoster Vaccines Completed 01/16/2018, 11/14, 07/08/2017 Hepatitis A Vaccines Aged Out No long er eligible based on patient's age to complete this topic Meningococcal B Vaccine Aged Out No l onger eligible based on patient's age to complete this topic Meningococcal Vaccine Aged Out No steve suman eligible based on patient's age to complete this topic RSV Immunizations Under 20 Months Aged Out No longer eligible based on patient's age to complete this topic Insurance [employer] MEDICARE Care Teams Strip Machine Operator Relationship Specialty [place] [address] [place] [address] [id number] PCP - General INTERNAL MEDICINE 04/28/21
== END 2025-02-25 10:04 | disposition home or self-care (01) ==
LOC: CHSIMG 10:04
PROVIDERS: PCP Internal Medicine; Visit Provider Internal Medicine
DX: Z12.31 Encounter for screening mammogram for malignant neoplasm of breast (principal)
CPT/HCPCS: 77063; 77067